=== PATIENT | male | born 1965 | race American Indian/Alaskan Native ===

== ENCOUNTER 2017-05-29 20:17 | Emergency (ER) | payer MEDICAID, OTHER ==
[2017-05-29 21:11] VITALS: BP 149/88
[2017-05-29] MEDS ORDERED: cefTRIAXone 1 GM, Lidocaine 1% 2.1 ML IM ONE ×2 (22:25)
[2017-05-29] MEDS ORDERED: Ketorolac 60 MG/2 ML SDV IM ONE (22:26)
--- NOTE | 2017-05-29 22:32 | EDM.PDOC ---
ED HPI GENERAL MEDICAL PROBLEM - General Chief Complaint: ENT Problem Stated Complaint: INFECTION IN TOOTH UPPER RT SIDE Time Seen by Provider: 05/29/17 21:30 Source of Information: Reports: Patient History Limitations: Reports: No Limitations - History of Present Illness INITIAL COMMENTS - FREE TEXT/NARRATIVE: pt has svere dental pain in the rt upper. Onset: Gradual, Other ( last 2-3 days. ) Duration: Day(s):, Getting Worse Associated Symptoms: Reports: Other ( pt has developed facial tenderness on the rt. ) Right Upper Tooth/Teeth Pain Score (Numeric/FACES): 9 - Related Data Allergies Allergy/AdvReac Type Severity Reaction Status Date / Time Penicillins Allergy Hives Verified 05/29/17 21:12 Home Meds: Home Meds NK [No Known Home Meds] 07/19/16 [History] Past Medical History HEENT History: Reports: Other (See Below) Other HEENT History: dental caries - Past Surgical History HEENT Surgical History: Reports: Oral Surgery GI Surgical History: Reports: Cholecystectomy Social & Family History - Tobacco Use Smoking Status *Q: Former Smoker Years of Tobacco use: 5 Packs/Tins Daily: 1 Used Tobacco, but Quit: Yes Month Tobacco Last Used: oct 2016 - Caffeine Use Caffeine Use: Reports: Coffee, Soda - Recreational Drug Use Recreational Drug Use: No ED ROS ENT - Review of Systems Review Of Systems: See Below Constitutional: Reports: Chills, Malaise HEENT: Reports: Dental Pain, Other ( facial pain on the rt) Respiratory: Reports: No Symptoms Cardiovascular: Reports: No Symptoms Endocrine: Reports: No Symptoms GI/Abdominal: Reports: No Symptoms : Reports: No Symptoms ED EXAM, ENT - Physical Exam Exam: See Below Text/Narrative:: pt has dental pain in the rt upper. He has now developed tenderness in the face/ Exam Limited By: No Limitations General Appearance: Alert, Anxious Ears: Normal TMs Nose: Normal Inspection Mouth/Throat: No: Other ( pt has a swoolen gum rt upper. He has a carious tooth and he has part of a root remaining in this ar from another tooth. ) Head: Atraumatic Neck: Normal Inspection Course - Vital Signs Last Recorded V/S: Last Vital Signs Temp 36.4 C 05/29/17 21:07 Pulse 60 05/29/17 21:07 Resp 16 05/29/17 21:07 BP 149/88 H 05/29/17 21:07 Pulse Ox 97 05/29/17 21:07 - Orders/Labs/Meds Orders: Active Orders 24 hr Category Date Time Status Ketorolac [Toradol] Med 05/29/17 22:26 Once 60 mg IM ONETIME ONE Meds: Medications Discontinued Medications Generic Name Dose Route Start Last Admin Trade Name Shaka PRN Reason Stop Dose Admin Ceftriaxone Sodium 1 gm/ 0 gm 05/29/17 22:25 Lidocaine HCl 2.1 ml IM 05/29/17 22:26 ONETIME ONE - Re-Assessments/Exams Free Text/Narrative Re-Assessment/Exam: 05/29/17 22:30 pt was given rocephen 1gm im and torodol 60mg im. He does have a fair amount of facial tenderness. Departure - Departure Time of Disposition: 22:31 Disposition: Home, Self-Care 01 Condition: Fair Clinical Impression: Infected tooth - Discharge Information Forms: ED Department Discharge Care Plan Goals: push fluids, motrin 600mg q6h, clindomycin 300mg tid, norco 5/325 q6h. - My Orders Last 24 Hours: My Active Orders 05/29/17 22:26 Ketorolac [Toradol] 60 mg IM ONETIME ONE - Assessment/Plan Last 24 Hours: My Active Orders 05/29/17 22:26 Ketorolac [Toradol] 60 mg IM ONETIME ONE
== END 2017-05-29 22:46 | disposition home or self-care (01) ==
LOC: JP.ED 20:17
DX: K04.7 Periapical abscess without sinus (principal); Z88.0 Allergy status to penicillin; Z90.49 Acquired absence of other specified parts of digestive tract; Z79.899 Other long term (current) drug therapy
CPT/HCPCS: 96372; 99283; 99283-25

== ENCOUNTER 2018-01-17 17:09 | Emergency (ER) | payer OTHER ==
[2018-01-17 18:52] VITALS: BP 116/79
[2018-01-17] MEDS ORDERED: Ondansetron 4 MG/2 ML SDV IVPUSH ONE (19:21)
--- NOTE | 2018-01-17 19:25 | EDM.PDOC ---
ED HPI GENERAL MEDICAL PROBLEM - General Chief Complaint: Gastrointestinal Problem Stated Complaint: illness Time Seen by Provider: 01/17/18 19:05 Source of Information: Reports: Patient History Limitations: Reports: No Limitations - History of Present Illness INITIAL COMMENTS - FREE TEXT/NARRATIVE: 52-year-old male who is his normal healthy self until 10 PM last night when he developed nausea and vomiting. He later developed diarrhea, and today has had very persistent watery diarrhea. He continues to feel nauseated and his last emesis was 2 hours ago. He has been able to hold onto bottles water over the past several hours but is having diffuse muscle cramps and is concerned about his hydration status. No fevers or chills, no significant abdominal pain. He did try some antidiarrheals. He has not been exposed to illness he knows of. He did mention that he "might have gotten it from his 3-year-old son". Patient has had no recent travel and has not been on an antibiotic. Onset: Sudden (Symptoms started rather suddenly 21 hours ago) Location: Reports: Abdomen Severity: Moderate Associated Symptoms: Reports: Malaise, Nausea/Vomiting, Weakness, Other ( Diarrhea) Treatments BILLING REP: Reports: Other (see below) (Antidiarrheals) - Related Data Allergies Allergy/AdvReac Type Severity Reaction Status Date / Time Penicillins Allergy Hives Verified 05/29/17 21:12 Home Meds: Home Meds NK [No Known Home Meds] 07/19/16 [History] Past Medical History HEENT History: Reports: Other (See Below) Other HEENT History: dental caries - Past Surgical History HEENT Surgical History: Reports: Oral Surgery GI Surgical History: Reports: Cholecystectomy Social & Family History - Tobacco Use Smoking Status *Q: Never Smoker Years of Tobacco use: 5 Packs/Tins Daily: 1 Used Tobacco, but Quit: Yes Month Tobacco Last Used: oct 2016 - Caffeine Use Caffeine Use: Reports: Coffee - Recreational Drug Use Recreational Drug Use: No ED ROS GENERAL - Review of Systems Review Of Systems: See Below Constitutional: Reports: Malaise, Weakness, Decreased Appetite. Denies: Fever, Fatigue, Night Sweats HEENT: Reports: No Symptoms Respiratory: Denies: Shortness of Breath Cardiovascular: Denies: Chest Pain GI/Abdominal: Reports: Diarrhea, Nausea, Vomiting. Denies: Abdominal Pain : Reports: No Symptoms Musculoskeletal: Reports: Muscle Pain (Diffuse muscle cramps intermittent) Skin: Reports: No Symptoms Neurological: Denies: Headache ED EXAM, GI/ABD - Physical Exam Exam: See Below Exam Limited By: No Limitations General Appearance: Alert, No Apparent Distress Eyes: Bilateral: Normal Appearance Head: Atraumatic Respiratory/Chest: No Respiratory Distress, Lungs Clear Cardiovascular: Regular Rate, Rhythm, Tachycardia GI/Abdominal Exam: Normal Bowel Sounds, Soft, Non-Tender Extremities: Normal Inspection. No: Pedal Edema Neurological: Alert, Oriented Course - Vital Signs Last Recorded V/S: Last Vital Signs Temp 100.2 F 01/17/18 18:51 Pulse 105 H 01/17/18 18:51 Resp 18 01/17/18 18:51 BP 116/79 01/17/18 18:51 Pulse Ox 96 01/17/18 18:51 - Orders/Labs/Meds Labs: Laboratory Tests 01/17/18 01/17/18 Range/Units 19:33 19:33 WBC 9.1 (4.5-11.0) K/uL RBC 5.73 (4.30-5.90) M/uL Hgb 17.1 H D (12.0-15.0) g/dL Hct 48.1 (40.0-54.0) % MCV 84 (80-98) fL MCH 30 (27-31) pg MCHC 36 (32-36) % Plt Count 167 (150-400) K/uL Neut % (Auto) 77 H (36-66) % Lymph % (Auto) 12 L (24-44) % Pike % (Auto) 12 H (2-6) % Eos % (Auto) 0 L (2-4) % Baso % (Auto) 0 (0-1) % Sodium 134 L (140-148) mmol/L Potassium 3.8 (3.6-5.2) mmol/L Chloride 99 L (100-108) mmol/L Carbon Dioxide 23 (21-32) mmol/L Anion Gap 15.8 H (5.0-14.0) mmol/L BUN 34 H D (7-18) mg/dL Creatinine 1.6 H (0.8-1.3) mg/dL Est Cr Clr Drug Dosing 63.08 mL/min Estimated GFR (MDRD) 45 L (>60) Glucose 144 H (74-106) mg/dL Calcium 8.8 (8.5-10.1) mg/dL Meds: Medications Discontinued Medications Generic Name Dose Route Start Last Admin Trade Name Shaka PRN Reason Stop Dose Admin Sodium Chloride 1,000 mls @ 1,000 mls/hr 01/17/18 19:30 01/17/18 19:36 Normal Saline IV 1,000 mls/hr ASDIRECTED RENE Administration Sodium Chloride 1,000 mls @ 1,000 mls/hr 01/17/18 20:45 01/17/18 21:08 Normal Saline IV 1,000 mls/hr ASDIRECTED RENE Administration Ondansetron HCl 4 mg 01/17/18 19:21 01/17/18 19:37 Zofran IVPUSH 01/17/18 19:22 4 mg ONETIME ONE Administration - Re-Assessments/Exams Free Text/Narrative Re-Assessment/Exam: 01/17/18 19:24 Patient has mild tachycardia at 105, and a low-grade fever of 100.2. An IV was started and he'll be bolused with 1 L of normal saline, CBC and BMP will be obtained. He'll also be given 4 mg of IV Zofran. 01/17/18 21:42 Creatinine returned 1.6, BUN 34 and GFR 45. Patient is certainly volume contracted, so was given 2 L of normal saline IV. He had 2 more episodes of diarrhea while in the hospital but no vomiting. Symptomatically he felt better. He's can continue with oral hydration and return if not improving in the next 24 -72 hours. Departure - Departure Time of Disposition: 21:49 Disposition: Home, Self-Care 01 Condition: Good Clinical Impression: Gastroenteritis - Discharge Information Instructions: Viral Gastroenteritis, Adult, [id number] Referrals: PCP,None [Primary Care Provider] - Forms: ED Department Discharge Care Plan Goals: Continue with fluid hydration and increase activity as tolerated. Consider rechecking in 2-3 days if not improving satisfactorily, you can always return sooner if worsening or you develop other concerns.
[2018-01-17] MEDS ORDERED: Sodium Chloride 0.9% 1,000 ML IV SCH ×2 (19:30→20:45)
== END 2018-01-17 21:49 | disposition home or self-care (01) ==
LOC: JP.ED 17:09
DX: K52.9 Noninfective gastroenteritis and colitis, unspecified (principal); Z88.0 Allergy status to penicillin
CPT/HCPCS: 36415; 80048; 85025; 96365; 99284; J2405; J7040; 99283; J7030

== ENCOUNTER 2019-01-20 20:35 | Emergency (ER) | payer MEDICAID, OTHER ==
[2019-01-20 20:55] VITALS: BP 132/70
[2019-01-20] MEDS ORDERED: Diphtheria,Pertussis(Acell),Tetanus Vaccine 0.5 ML SDV IM ONE (20:55)
--- NOTE | 2019-01-20 20:56 | EDM.PDOC ---
ED HPI GENERAL MEDICAL PROBLEM - General Chief Complaint: Laceration Stated Complaint: cut finger with knife Time Seen by Provider: 01/20/19 20:56 Source of Information: Reports: Patient History Limitations: Reports: No Limitations - History of Present Illness INITIAL COMMENTS - FREE TEXT/NARRATIVE: 53-year-old male with a laceration to his right hand. He was cleaning a vacuum cleaner signs when the knife slipped and stabbed himself in the thumb. Onset: Sudden Duration: Hour(s): (Within the last hour) Location: Reports: Upper Extremity, Right Associated Symptoms: Reports: Other (Some paresthesia and numbness along the radial aspect of the thumb) Right Head Pain Score (Numeric/FACES): 3 - Related Data Allergies Allergy/AdvReac Type Severity Reaction Status Date / Time Penicillins Allergy Hives Verified 01/20/19 20:55 Home Meds: Home Meds metFORMIN [Glucophage] 500 mg PO BIDMEALS 01/20/19 [History] Past Medical History HEENT History: Reports: Other (See Below) Other HEENT History: dental caries - Past Surgical History HEENT Surgical History: Reports: Oral Surgery GI Surgical History: Reports: Cholecystectomy Social & Family History - Caffeine Use Caffeine Use: Reports: Coffee ED ROS GENERAL - Review of Systems Review Of Systems: See Below Constitutional: Denies: Fever, Chills Respiratory: Denies: Shortness of Breath Cardiovascular: Denies: Chest Pain GI/Abdominal: Denies: Nausea, Vomiting Neurological: Reports: Paresthesia (As mentioned in history of present illness) ED EXAM, SKIN/RASH Exam: See Below Exam Limited By: No Limitations General Appearance: Alert, No Apparent Distress Respiratory/Chest: No Respiratory Distress Extremities: Other (Exam is otherwise limited to the right hand. Patient has a transverse 3 cm laceration just proximal to the MP joint, palmar surface of the right thumb. There is some pain with flexion of the thumb but strength is present, he has numbness along the radial aspect of the thumb.) Neurological: Alert, Oriented Course - Vital Signs Last Recorded V/S: Last Vital Signs Temp 97.3 F 01/20/19 21:13 Pulse 61 01/20/19 21:13 Resp 13 01/20/19 21:13 BP 132/70 01/20/19 21:13 Pulse Ox 94 L 01/20/19 21:13 - Orders/Labs/Meds Orders: Active Orders 24 hr Category Date Time Status Vaccines to be Administered [RC] PER UNIT ROUTINE Care 01/20/19 20:55 Active Meds: Medications Discontinued Medications Generic Name Dose Route Start Last Admin Trade Name Shaka PRN Reason Stop Dose Admin Diphtheria/Tetanus/Acell Pertussis 0.5 ml 01/20/19 20:55 01/20/19 21:44 Adacel IM 01/20/19 20:56 0.5 ml .ONCE ONE Administration Lidocaine HCl 5 ml 01/20/19 20:55 01/20/19 21:44 Xylocaine-Mpf 1% INJECT 01/20/19 20:56 5 ml ONETIME ONE Administration - Re-Assessments/Exams Free Text/Narrative Re-Assessment/Exam: 01/20/19 21:18 The wound was anesthetized with 1% lidocaine, cleaned thoroughly with normal saline and Hibiclens, and 4 4-0 Ethilon sutures were used to close the wound. Topical bacitracin and a dressing was applied, patient was given a TDap booster and the sutures can be removed in 8-9 days. Departure - Departure Time of Disposition: 21:52 Disposition: Home, Self-Care 01 Condition: Good Clinical Impression: Hand laceration Qualifiers: Encounter type: initial encounter Foreign body presence: without foreign body Laterality: right Qualified Code(s): S61.411A - Laceration without foreign body of right hand, initial encounter - Discharge Information Instructions: Laceration Care, Adult, [id number] Referrals: PCP,None [Primary Care Provider] - Forms: ED Department Discharge Care Plan Goals: Keep wound covered and clean while healing, and have sutures removed in 9-10 days. Recheck sooner if concerns of infection or not healing satisfactorily. Consider rechecking earlier if you feel the thumb is not working with normal strength. - My Orders Last 24 Hours: My Active Orders 01/20/19 20:55 Vaccines to be Administered [RC] PER UNIT ROUTINE - Assessment/Plan Last 24 Hours: My Active Orders 01/20/19 20:55 Vaccines to be Administered [RC] PER UNIT ROUTINE
== END 2019-01-20 21:53 | disposition home or self-care (01) ==
LOC: JP.ED 20:35
DX: S61.411A Laceration without foreign body of right hand, initial encounter (principal); Z23 Encounter for immunization; Z88.0 Allergy status to penicillin; W26.0XXA Contact with knife, initial encounter
CPT/HCPCS: 12002; 90471; 90715; 99282; J2001